=== PATIENT | female | born 1965 | race African-American/Black ===

== ENCOUNTER 2017-02-22 11:16 | Outpatient (CLI) | payer OTHER ==
--- NOTE | 2017-02-22 14:03 | Diagnostic Imaging Report ---
Indication: Right knee pain Technique: MRI of the right knee was imaged in a 1.5 [employer] magnet. Pulse sequences obtained include coronal T1 fast spin-echo, STIR, sagittal coronal and axial proton fast spin-echo with fat saturation, sagittal proton fast spin-echo. Comparison: None Findings: In the intertrochlear groove of the distal femur, there is a linear focal signal alteration of the articular cartilage consistent with full-thickness chondrosis (image 12 of series 3). Just deep to this there is subchondral T2 hyperintense signal measuring 1.5-2 CM of the subchondral bone with subtle cystic changes. In addition, the articular cartilage defect is also present in the anterior medial aspect of the medial compartment (for example image 14, series 4 or image 18 of series 7) area there may be subtle chondrosis involving the inferior midline patellar cartilage as well, although by imaging this is questionable. Anterior posterior cruciate ligaments are normal. Extensor tendon mechanism/quadriceps tendon/patellar tendon appear normal. The menisci appear unremarkable. Bone marrow signal is otherwise normal. Medial collateral ligament complex lateral collateral ligament structures are normal. There is a tiny teardrop popliteal cyst demonstrated between the semimembranosus tendon and medial head gastrocnemius tendon. 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 Tiny popliteal cyst
== END 2017-02-22 13:16 | disposition home or self-care (01) ==
LOC: MRI 11:16
DX: M22.41 Chondromalacia patellae, right knee (principal); M71.21 Synovial cyst of popliteal space [Baker], right knee